=== PATIENT | female | born 1940 | race Caucasian/White ===

== ENCOUNTER 2023-12-26 09:22 | Day surgery (SDC) | payer MEDICARE, OTHER ==
[2023-12-26] MEDS ORDERED: Xylocaine-Mpf 2% 5 Ml Vial IJ ONE (09:23)
[2023-12-26] MEDS ORDERED: Depo-Medrol 40 MG/ML IM ONE (09:23)
[2023-12-26] MEDS ORDERED: Pepcid 20 MG VIAL IV SCH (10:00)
[2023-12-26] MEDS ORDERED: Zofran 4 MG/2 ML VIAL IV PRN (10:00)
[2023-12-26] MEDS ORDERED: Reglan 10 MG/2 ML IV SCH (10:00)
[2023-12-26] MEDS ORDERED: Pepcid 20 MG VIAL IV ONE (10:04)
[2023-12-26] MEDS ORDERED: Reglan 10 MG/2 ML ONE (10:04)
[2023-12-26] MEDS ORDERED: Zofran 4 MG/2 ML VIAL ONE (10:04)
[2023-12-26] MEDS ORDERED: DIPRIVAN 200 MG/20 ML IV ONE (11:07)
[2023-12-26] MEDS ORDERED: Lactated Ringers 1,000 ML IV ONE (11:22)
--- NOTE | 2023-12-26 12:45 | XRAY ---
Indication: Bilateral L4-S1 MBB. Intraoperative fluoroscopy provided 8 seconds. Single digital spot image submitted for interpretation demonstrates posterior needle tips projecting over the expected left and right L4-S1 nerve roots. Correlate with intraoperative findings/report.
--- NOTE | 2023-12-26 15:00 | XRAY ---
8 seconds of fluoroscopy was used in surgery for a bilateral L4-S1 MBB.
== END 2023-12-26 11:35 | disposition home or self-care (01) ==
LOC: SDC-PAIN 09:22
PROVIDERS: ATTEND Psychiatry & Neurology Pain Medicine
DX: M47.816 Spondylosis without myelopathy or radiculopathy, lumbar region (principal); E11.9 Type 2 diabetes mellitus without complications
CPT/HCPCS: 64493; 64494; 72020; 77002; 82947; J2405; J2704

== ENCOUNTER 2024-01-24 08:59 | Day surgery (SDC) | payer MEDICARE, OTHER ==
[2024-01-24] MEDS ORDERED: BUPIVACAINE 0.5% VIAL IJ ONE (09:00)
[2024-01-24] MEDS ORDERED: Depo-Medrol 40 MG/ML IM ONE (09:00)
[2024-01-24] MEDS ORDERED: DIPRIVAN 200 MG/20 ML IV ONE (10:41)
--- NOTE | 2024-01-24 12:56 | XRAY ---
Indication: Bilateral L4-S1 MBB. Intraoperative fluoroscopy provided for 9 seconds. Single digital spot image submitted for interpretation demonstrates posterior needle tips projecting over the expected left and right L4-S1 nerve roots. Correlate with intraoperative findings/report.
--- NOTE | 2024-01-24 13:07 | XRAY ---
9 seconds of fluoroscopy was used in surgery for a bilateral L4-S1 MBB.
== END 2024-01-24 11:15 | disposition home or self-care (01) ==
LOC: SDC-PAIN 08:59
PROVIDERS: ATTEND Psychiatry & Neurology Pain Medicine
DX: M47.816 Spondylosis without myelopathy or radiculopathy, lumbar region (principal); E11.9 Type 2 diabetes mellitus without complications
CPT/HCPCS: 64493; 64494; 72020; 77002; 82947; J2704

== ENCOUNTER 2024-02-13 07:11 | Day surgery (SDC) | payer MEDICARE, OTHER ==
[2024-02-13] MEDS ORDERED: Depo-Medrol 40 MG/ML IM ONE (07:12)
[2024-02-13] MEDS ORDERED: LIDOCAINE HCL 1% AMPUL 5 ML IJ ONE (07:12)
[2024-02-13] MEDS ORDERED: BUPIVACAINE 0.5% VIAL IJ ONE (07:12)
[2024-02-13] MEDS ORDERED: DIPRIVAN 200 MG/20 ML IV ONE (08:49)
--- NOTE | 2024-02-13 12:58 | XRAY ---
Indication: Left L4-S1 RFA. Intraoperative fluoroscopy provided for 26 seconds. 3 digital spot image submitted for interpretation demonstrates posterior needle tips projecting over expected left L4-S1 nerve roots. Correlate with intraoperative findings/report.
--- NOTE | 2024-02-13 13:10 | XRAY ---
26 seconds of fluoroscopy was used in surgery for a left L4-S1 RFA.
== END 2024-02-13 09:25 | disposition home or self-care (01) ==
LOC: SDC-PAIN 07:11
PROVIDERS: ATTEND Psychiatry & Neurology Pain Medicine
DX: M47.816 Spondylosis without myelopathy or radiculopathy, lumbar region (principal); E11.9 Type 2 diabetes mellitus without complications
CPT/HCPCS: 64635; 64636; 72100; 77002; 82947; J2704

== ENCOUNTER 2024-02-27 08:52 | Day surgery (SDC) | payer MEDICARE, OTHER ==
[2024-02-27] MEDS ORDERED: Depo-Medrol 40 MG/ML IM ONE (08:53)
[2024-02-27] MEDS ORDERED: Sodium Chloride 0.9% 250 ML 250 ML IV ONE (08:53)
[2024-02-27] MEDS ORDERED: LIDOCAINE HCL 1% AMPUL 5 ML IJ ONE (08:53)
[2024-02-27] MEDS ORDERED: BUPIVACAINE 0.5% VIAL IJ ONE (08:53)
[2024-02-27] MEDS ORDERED: DIPRIVAN 200 MG/20 ML IV ONE (10:53)
--- NOTE | 2024-02-27 18:52 | XRAY ---
Indication: Right L4-S1 RFA. Intraoperative fluoroscopy provided for 20 seconds. 3 digital spot image submitted for interpretation demonstrates posterior needle tips projecting over the expected right L4-S1 nerve roots. Correlate with intraoperative findings/report.
--- NOTE | 2024-02-27 19:22 | XRAY ---
20 seconds of fluoroscopy was used in surgery for a right L4-S1 RFA.
== END 2024-02-27 11:40 | disposition home or self-care (01) ==
LOC: SDC-PAIN 08:52
PROVIDERS: ATTEND Psychiatry & Neurology Pain Medicine
DX: M47.816 Spondylosis without myelopathy or radiculopathy, lumbar region (principal); E11.9 Type 2 diabetes mellitus without complications
CPT/HCPCS: 64635; 64636; 72100; 77002; 82947; J2704